=== PATIENT | female | born 1990 | race Caucasian/White ===

== ENCOUNTER → 2017-10-15 | Outpatient (CLI) | payer OTHER | LOC: FIMAGING 11:35 | PROVIDERS: ATTEND Student in an Organized Health Care Education/Training Program | DX: O09.812 Supervision of pregnancy resulting from assisted reproductive technology, second trimester (principal); Z3A.19 19 weeks gestation of pregnancy ==

== ENCOUNTER → 2017-11-10 | Outpatient (CLI) | payer OTHER | LOC: FIMAGING 11:15 | PROVIDERS: ATTEND Student in an Organized Health Care Education/Training Program | DX: O09.812 Supervision of pregnancy resulting from assisted reproductive technology, second trimester (principal); O36.62X0 Maternal care for excessive fetal growth, second trimester, not applicable or unspecified; Z3A.23 23 weeks gestation of pregnancy ==